=== PATIENT | female | born 1950 | race Asian ===

== ENCOUNTER → 2018-03-23 | Outpatient (CLI) | payer BC ==
[~2018-03-23] MED LIST: AMLO-114 PO; B-COTAB25 PO; FEXO1TAB46 PO; LOSA50TA54 PO; METO50TA8 PO; SEVE800T7 PO; TACR1CAP PO; ZOLP5TAB PO
--- NOTE | 2018-03-23 11:23 | DIAGNOSTIC IMAGING REPORT ---
RENAL TRANSPLANT ULTRASOUND W/WO DUPLEX CLINICAL HISTORY: GROSS HEMATURIA, F/U [facility] RENAL TRANSPLANT COMPARISON STUDY: No previous studies for comparison. FINDINGS: There is a right iliac fossa transplant kidney. The kidney measures 11.1 cm in length. There are no perinephric fluid collections. There is minimal fullness of the renal pelvis but significant hydronephrosis is not felt to be present. The peak systolic velocity within the right iliac artery is 99 cm/s. The peak systolic velocity within the right renal transplant artery is 120 cm/s. Arterial waveforms unremarkable in appearance. The resistive index is 0.73. IMPRESSION: 1. Right iliac fossa transplant kidney. No masses identified. No evidence of significant hydronephrosis. No evidence of renal artery stenosis. Electronically signed by: Maco Hawkins M.D. 03/23/2018 11:22 AM Dictated Date/Time: 03/23/2018 11:19 AM
== END | disposition home or self-care (01) ==
LOC: C.ULTR 10:32
PROVIDERS: ATTEND Internal Medicine
DX: R31.0 Gross hematuria (principal); Z94.0 Kidney transplant status

== ENCOUNTER 2019-01-01 10:38 | Observation (INO) ==
[2019-01-01] MEDS ORDERED: ASPIRIN CHEW 324 MG PO STA (11:20)
[2019-01-01 11:28] LABS: Basophils # (auto) 0.01 K/uL (0-0.2); Basophils % (auto) 0.1 %; Eosinophils # (auto) 0.21 K/uL (0-0.5); Eosinophils % (auto) 2.4 %; Hemoglobin 12.9 g/dL (12.0-16.0); Immature Granulocytes # (auto) 0.02 K/uL (0.00-0.02); Immature Granulocytes % (auto) 0.2 %; Lymphocytes # (auto) 2.49 K/uL (1.2-3.4); Lymphocytes % (auto) 28.7 %; Mean Corpuscular Hgb Conc 33.1 g/dL (32-36); Mean Corpuscular Volume 97.5 fL (80-100); Mean Platelet Volume 11.6 fL (7.4-10.4); Monocytes % (auto) 8.1 %; Neutrophils # (auto) 5.24 K/uL (1.4-6.5); Neutrophils % (auto) 60.5 %; Platelet Count 256 K/uL (130-400); RDW Coefficient of Variation 14.1 % (11.5-14.5); RDW Standard Deviation 50.5 fL (36.4-46.3); White Blood Count 8.67 K/uL (4.8-10.8)
[2019-01-01 11:36] LABS: BUN Creatinine Ratio 9.9 (10-20); Calcium 8.3 mg/dl (8.5-10.1); Creatinine Clr Calc Pharmacy 58.9 ml/min; Est GFR (African American) 92.1; Est GFR (Non-African American) 79.5; Potassium 3.7 mmol/L (3.5-5.1)
[2019-01-01 11:40] LABS: Troponin I 0.018 ng/ml (0-0.045)
--- NOTE | 2019-01-01 11:56 | XRay Report ---
XR chest 2V routine CLINICAL HISTORY: Atypical chest pain COMPARISON STUDY: 07/24/2013 FINDINGS: The heart is mildly enlarged. There is no failure. There is no focal pulmonary consolidatio n. There are no pleural effusions.[ IMPRESSION: No active disease in the chest. Electronically signed by: Maco Hawkins M.D. 01/01/2019 11:54 AM
--- NOTE | 2019-01-01 13:45 | History & Physical Report ---
Date of Service January 01, 2019 Assessment & Plan (1) Chest pain: Constant sharp chest pain x 2 days. Pain atypical for myocardial ischemia. Troponin in ED normal. No acute EKG changes. History of pericarditis. Check CRP and echo. Recent travel, but pain not pleuritic in nature. Low clinical suspicion for PE- oxygenating well, not tachycardic. Had some calf pain which has resolved. Check venous duplex lower extremities. Probably best not to pursue CTA due to renal transplant status and low clinical suspicion. (Wells' score 0 unless mild / resolved calf pain is included which would increase score to 3). Symptoms may be due to esophageal disease- GERD, alendronate-induced esophagitis , or infectious etiologies. Empiric pantoprazole. Consult Cardiology and GI. (2) Personal history of atrial fibrillation: Remote history of PAF. Currently in NSR. Continue metoprolol and aspirin. (3) Hypertension: Continue metoprolol. (4) Diabetes mellitus type 2, controlled: Apparently steroid-induced. Check Hgb A1C. Continue sitagliptin. Insulin coverage as needed. (5) Dyslipidemia: Check lipid profile. Continue atorvastatin. (6) Osteoporosis: Consider esophagitis secondary to alendronate. (7) Kidney transplanted: Creatinine stable at 0.76. Continue azothrioprine, tacrolimus, steroids. (8) Transplantation of liver: LFT's stable. Continue azothrioprine, tacrolimus, steroids. (9) DVT prophylaxis: Will not use anticoagulants until significant UGI pathology ruled out. SCD's. Ambulate. (10) Discharge planning issues: Anticipated discharge to home. Internal Medicine follow-up with Dr. Garner. History of Present Illness Chief Complaint: chest pain Primary Care Provider: Patricio Garner MD 68 YO female followed by Dr. Garner. 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 Developed chest pain 2 days prior to admission. Pain described as constant midsternal pain that does not radiate. Not associated SOB, nausea, vomiting, diaphoresis. Not associated with activity. Possibly aggravated by eating or drinking. Pain sharp in nature, but not pleuritic. Recently traveled by air from [place] about 3 weeks ago. Had some mild left calf pain which has resolved. Exposed to influenza while in [place] several weeks ago. Had a fever, cough, pharyngitis. Her symptoms have resolved. Takes alendronate for osteoporosis. Took dose yesterday and her symptoms worsened over the next 24 hours. Has chronic loose stools attributed to collagenous colitis. No melena or hematochezia. Allergies Allergy/AdvReac Type Severity Reaction Status Date / Time AMILCAR Inhibitors Allergy Unknown Cough Verified 01/01/19 12:07 amiodarone Allergy Unknown Hives Verified 01/01/19 12:07 Home Medications Home Medications Medication Instructions Recorded Confirmed Type alendronate 70 mg PO WK 01/01/19 01/01/19 History aspirin 81 mg PO QAM 01/01/19 01/01/19 History atorvastatin 10 mg PO HS 01/01/19 01/01/19 History azathioprine 100 mg PO DAILY 01/01/19 01/01/19 History biotin 0 mg PO HS 01/01/19 01/01/19 History fexofenadine 180 mg PO HS 01/01/19 01/01/19 History metoprolol succinate 50 mg PO QAM 01/01/19 01/01/19 History omega 1-ges-dvu-fish oil [Fish Oil] 1 cap PO QAM 01/01/19 01/01/19 History prednisolone 5 mg PO QAM 01/01/19 01/01/19 History sitagliptin [Januvia] 50 mg PO QAM 01/01/19 01/01/19 History tacrolimus 0.5 mg PO HS 01/01/19 01/01/19 History tacrolimus 1 mg PO QAM 01/01/19 01/01/19 History Past Med/Surg History Medical History Kidney transplanted (Chronic) Hypertension (Chronic) Diabetes mellitus type 2, 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 Osteoporosis (Chronic) Dyslipidemia (Chronic) Personal history of atrial fibrillation (Chronic) Chronic kidney disease stage 5 (Resolved Unknown) s/p renal transplant 2012 End stage renal failure on dialysis (Resolved Unknown) status post renal transplant 2013 Hemodialysis (Resolved Unknown) Transplantation of liver (Chronic Unknown) Collagenous colitis (Chronic) Pericardial effusion (Resolved) Surgical History Status post cardiac catheterization (Chronic) Status post creation of pericardial window (Chronic) Status post hysterectomy (Chronic) Status post kidney transplant (Chronic) Status post liver transplant (Chronic) Family History Mother Cancer Father Hypertension Other Family history non-contributory Social History marital status: Current Living Situation: Spouse current occupational status: retired Other Information That Helps Us Care for You: No Feels Safe at Home: Yes Safety Concerns: Feels Safe At This Time Smoking Status: Never smoker Do You Dip or Chew Tobacco: No Second Hand Exposure: No Tobacco Cessation Education Requested by Patient: No Hx Alcohol Use: No Hx Substance Use: No Beliefs That Will Affect Care: None Preferred Language: Tunisian Communication Ability: Effective Claim Technician Required: No Review of Systems Constitutional: + fever (fever a few weeks ago, resolved); no weight loss Eyes: no diplopia and no worsening vision Ear, Nose, Mouth, Throat: + nasal congestion (a few weeks ago, resolved) and + sore throat (a few weeks ago, resolved) Respiratory: as per Subjective / HPI Cardiovascular: as per Subjective / HPI Gastrointestinal: as per Subjective / HPI Genitourinary (Female): + dysuria (a few weeks ago, resolved) and + hematuria ( a few weeks ago, resolved) Musculoskeletal: no joint pain and no myalgia Integumentary: no rash and no new lesions Neurologic: no headache(s) Endocrine: no polydipsia and no polyuria Hematologic / Lymphatic: no easy bleeding, no easy bruising and no lymphadenopathy Physical Exam 2 Vital Signs (Past 24 Hours): Last Vital Signs Temp 36.8 C 01/01/19 10:52 Pulse 61 01/01/19 13:00 Resp 14 01/01/19 13:00 BP 118/78 01/01/19 13:00 Pulse Ox 96 01/01/19 13:00 Constitutional: WD/WN, vitals as above no acute distress Eyes: PERRL, conjunctivae normal, anicteric sclerae ENMT: external ear and nose normal, oropharynx normal Neck: trachea midline, no thyromegaly Respiratory: normal respiratory effort, lungs clear to auscultation no respiratory distress Auscultation: lungs clear to auscultation bilaterally Cardiovascular: Rate/Rhythm: regular rate and regular rhythm Heart Sounds: + murmur (II/ sys murmur at base); no gallop and no cardiac rub Vessels: no JVD Extremities: normal capillary refill (toes); no calf tenderness and no edema Gastrointestinal (Abdomen): normal bowel sounds, soft, nontender, no hepatosplenomegaly Musculoskeletal: Head/Neck/Chest: neck supple Extremities: strength 5/5 throughout; no cyanosis and no clubbing Skin: no rashes, warm and dry Neurologic: PERRL, EOMI no facial palsy no dysarthria or aphasia patellar DTR's 2/2 bilat Psychiatric: Orientation: alert and oriented x 3 Affect: euthymic affect Lymphatic: no cervical lymphadenopathy Results & Data Laboratory Results Laboratory Results - last 24 hr 01/01/19 01/01/19 11:04 11:04 WBC 8.67 RBC 4.00 L Hgb 12.9 Hct 39.0 MCV 97.5 MCH 32.3 MCHC 33.1 RDW Std Deviation 50.5 H RDW Coeff of Kristin 14.1 Plt Count 256 MPV 11.6 H Immature Gran % (Auto) 0.2 Neut % (Auto) 60.5 Lymph % (Auto) 28.7 [place] % (Auto) 8.1 Eos % (Auto) 2.4 Baso % (Auto) 0.1 Immature Gran # (Auto) 0.02 Neut # (Auto) 5.24 Lymph # (Auto) 2.49 [place] # (Auto) 0.70 H Eos # (Auto) 0.21 Baso # (Auto) 0.01 Sodium 139 Potassium 3.7 Chloride 104 Carbon Dioxide 29 Anion Gap 6.0 BUN 8 Creatinine 0.76 Est Cr Clr Drug Dosing 58.9 Est GFR ( Amer) 92.1 Est GFR (Non-Af Amer) 79.5 BUN/Creatinine Ratio 9.9 L Glucose 149 H Calcium 8.3 L Troponin I 0.018 Diagnostic Findings CHEST X-RAY FINDINGS: The heart is mildly enlarged. There is no failure. There is no focal pulmonary consolidation. There are no pleural effusions.[ IMPRESSION: No active disease in the chest. Electronically signed by: Maco Hawkins M.D. 01/01/2019 11:54 AM ECG Additional Comments: EKG performed at 1058 reviewed and demonstrated NSR @ 60 / min, possible age- indeterminate septal infarct, [address] elevation V1, [address] elevation V2, inverted T-waves aVL. Compared to tracing performed in clinic on 01/18/18- no significant change. Code Status & VTE Plan Code Status Advanced directives and code status discussed with patient. She has a living will. She would want aggressive measures undertaken in the event of a cardiopulmonary arrest, including CPR and intubation, if there is a change of a meaningful recovery. However she does not want extraordinary measures undertaken or continued if prognosis is poor. VTE Prophylaxis Plan VTE Prophylaxis will be ordered: Yes _ (1) Chest pain Chest pain type: unspecified Ischemic chest pain type: Qualified Code(s): R07.9 - Chest pain, unspecified
[2019-01-01] MEDS ORDERED: ALUMINUM/MAGNESIUM SUSP 30 ML UDC PO PRN (14:38)
[2019-01-01] MEDS ORDERED: ONDANSETRON INJ 2 MG/ML 2 ML VIAL IV PRN (14:38)
[2019-01-01] MEDS ORDERED: ACETAMINOPHEN 325 MG TAB PO PRN (14:38)
[2019-01-01] MEDS ORDERED: GLUCOSE 10 TABS/TUBE PO PRN (14:47)
[2019-01-01] MEDS ORDERED: CARBOHYDRATES FOR HYPOGLYCEMIA PO PRN (14:47)
[2019-01-01] MEDS ORDERED: GLUCAGON FOR INJ 1 MG VIAL IM PRN (14:47)
[2019-01-01] MEDS ORDERED: GLUCOSE 40% GEL 15 GM TUBE PO PRN (14:47)
[2019-01-01] MEDS ORDERED: DEXTROSE 50% 50 ML SYRINGE IV PRN (14:47)
[2019-01-01] MEDS ORDERED: PANTOprazole 40 MG in SYRINGE 0 ML IV ONE (15:45)
[2019-01-01 16:19] LABS: Alanine Aminotransferase 23 U/L (12-78); Albumin Level 3.5 gm/dl (3.4-5.0); Alkaline Phosphatase 58 U/L (45-117); Aspartate Aminotransferase 23 U/L (15-37); Bilirubin Direct 0.2 mg/dl (0-0.2); Bilirubin,Total 0.8 mg/dl (0.2-1); C Reactive Protein < 0.29 mg/dl (0-0.29); Total Protein 7.1 gm/dl (6.4-8.2); Troponin I 0.017 ng/ml (0-0.045)
--- NOTE | 2019-01-01 17:19 | Cardiology Consultation ---
Date of Consultation January 01, 2019 Assessment & Plan (1) Chest pain: We will monitor her cardiac enzymes. A resting echocardiogram was requested by the admitting team, and I will review this. Further cardiac workup possibly to include exercise stress echocardiogram will be considered tomorrow based on how she progresses. Continue aspirin, atorvastatin, metoprolol succinate. 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 Ledezma for the evaluation of chest discomfort. The patient's primary shoe coverer is Dr. Gonzalez of our practice. She has a history of remote paroxysmal atrial fibrillation. She describes a past history of myocardial infarction in the setting of a profound anemia episode and had cardiac catheterization performed [place] [facility] that revealed mild luminal irregularities and mild pulmonary hypertension. Her most recent stress test is been several years ago prior to her kidney transplant. She states that 2 days ago she had a brief degree of chest discomfort that went away on its own. Yesterday she had chest discomfort in the morning, but also taking her Fosamax tablet. She rested well yesterday but this morning she woke up again with chest discomfort which waxed and waned over several hours prompting her to come to the emergency room. Initial EKG revealed sinus rhythm at 60 bpm with chronic age-indeterminate septal infarction pattern noted with Q waves in lead V2 unchanged compared to 2013. Initial troponin was negative x2 at 11:04 AM and 1520 2 AM. At present when I interviewed the patient in room 201 she was comfortable having just had her evening meal. She describes that she exercises routinely at the [facility], she notes shortness of breath with exertion when she climbs a hill, but typically she notes that her exercise routine is not limited. Allergies Allergy/AdvReac Type Severity Reaction Status Date / Time AMILCAR Inhibitors Allergy Unknown Cough Verified 01/01/19 12:07 amiodarone Allergy Unknown Hives Verified 01/01/19 12:07 Home Medications Home Medications Medication Instructions Recorded Confirmed Type alendronate 70 mg PO WK 01/01/19 01/01/19 History aspirin 81 mg PO QAM 01/01/19 01/01/19 History atorvastatin 10 mg PO HS 01/01/19 01/01/19 History azathioprine 100 mg PO DAILY 01/01/19 01/01/19 History biotin 0 mg PO HS 01/01/19 01/01/19 History fexofenadine 180 mg PO HS 01/01/19 01/01/19 History metoprolol succinate 50 mg PO QAM 01/01/19 01/01/19 History omega 7-enh-jrw-fish oil [Fish Oil] 1 cap PO QAM 01/01/19 01/01/19 History prednisolone 5 mg PO QAM 01/01/19 01/01/19 History sitagliptin [Januvia] 50 mg PO QAM 01/01/19 01/01/19 History tacrolimus 0.5 mg PO HS 01/01/19 01/01/19 History tacrolimus 1 mg PO QAM 01/01/19 01/01/19 History Patient History Medical History Kidney transplanted (Chronic) Hypertension (Chronic) Diabetes mellitus type 2, 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 Osteoporosis (Chronic) Dyslipidemia (Chronic) Personal history of atrial fibrillation (Chronic) Chronic kidney disease stage 5 (Resolved Unknown) s/p renal transplant 2012 End stage renal failure on dialysis (Resolved Unknown) status post renal transplant 2012 Hemodialysis (Resolved Unknown) Transplantation of liver (Chronic Unknown) Collagenous colitis (Chronic) Pericardial effusion (Resolved) Surgical History Status post cardiac catheterization (Chronic) Status post creation of pericardial window (Chronic) Status post hysterectomy (Chronic) Status post kidney transplant (Chronic) Status post liver transplant (Chronic) Family History Mother Cancer Father Hypertension Other Family history non-contributory Social History marital status: Current Living Situation: Spouse current occupational status: retired Other Information That Helps Us Care for You: No Feels Safe at Home: Yes Safety Concerns: Feels Safe At This Time Smoking Status: Never smoker Do You Dip or Chew Tobacco: No Second Hand Exposure: No Tobacco Cessation Education Requested by Patient: No Hx Alcohol Use: No Hx Substance Use: No Beliefs That Will Affect Care: None Preferred Language: Israeli Communication Ability: Effective Barbering Instructor Required: No Review of Systems 10 point review of systems is reviewed and is negative the exception of that above Physical Exam 2 Vital Signs (Past 24 Hours): Last Vital Signs Temp 37.1 C 01/01/19 16:23 Pulse 56 L 01/01/19 16:23 Resp 18 01/01/19 16:23 BP 115/69 01/01/19 16:23 Pulse Ox 97 01/01/19 16:23 Physical Exam: General: no acute distress and stated age Eyes: conjunctiva are pink and non-injected, sclera clear Neck: normal jugular venous pulse, no hepatojugular reflux Chest: normal shape and normal respiratory effort Lungs: clear to auscultation and percussion Cardiac Exam: - regular heart sounds, 1/6 systolic murmur heard best over the left sternal border Abdomen: abdomen soft, non-tender, no abnormal masses and no hepatosplenomegaly Extremities: no edema and no cyanosis Neuro:awake, coversant, follows commands, no focal motor deficits Psych: appropriate affect and insight. Results & Data Laboratory Results Cardiac Enzymes 01/01/19 01/01/19 Range/Units 11:04 15:22 AST 23 (15-37) U/L Troponin I 0.018 0.017 (0-0.045) ng/ml CBC 01/01/19 Range/Units 11:04 WBC 8.67 (4.8-10.8) K/uL RBC 4.00 L (4.2-5.4) M/uL Hgb 12.9 (12.0-16.0) g/dL Hct 39.0 (37-47) % Plt Count 256 (130-400) K/uL Neut # (Auto) 5.24 (1.4-6.5) K/uL Lymph # (Auto) 2.49 (1.2-3.4) K/uL [place] # (Auto) 0.70 H (0.11-0.59) K/uL Eos # (Auto) 0.21 (0-0.5) K/uL Baso # (Auto) 0.01 (0-0.2) K/uL Comprehensive Metabolic Panel 01/01/19 01/01/19 Range/Units 11:04 15:22 Sodium 139 (136-145) mmol/L Potassium 3.7 (3.5-5.1) mmol/L Chloride 104 (98-107) mmol/L Carbon Dioxide 29 (21-32) mmol/L BUN 8 (7-18) mg/dl Creatinine 0.76 (0.6-1.2) mg/dl Glucose 149 H (70-99) mg/dl Calcium 8.3 L (8.5-10.1) mg/dl Direct Bilirubin 0.2 (0-0.2) mg/dl AST 23 (15-37) U/L ALT 23 (12-78) U/L Alkaline Phosphatase 58 (45-117) U/L Total Protein 7.1 (6.4-8.2) gm/dl Albumin 3.5 (3.4-5.0) gm/dl Intake and Output 01/01/19 01/01/19 01/01/19 06:59 14:59 22:59 Other: Weight 63.8 kg Patient Weight 01/02/19 06:59 Weight 63.8 kg Medications Administered Current Inpatient Medications Acetaminophen (Tylenol) 650 mg PO Q4H PRN PRN Reason: Pain or Fever Stop: 01/31/19 14:37 Al Hydrox/Mg Hydrox/Simethicone (Maalox) 15 ml PO Q4H PRN PRN Reason: Dyspepsia Stop: 01/31/19 14:37 Aspirin (Ecotrin Ectab) 81 mg PO QAM RONA Stop: 02/01/19 08:59 Atorvastatin Calcium (Lipitor) 10 mg PO HS RONA Stop: 01/31/19 20:59 Azathioprine (Imuran) 100 mg PO DAILY RONA Stop: 02/01/19 08:59 Dextrose (Dextrose 50%) 25 - 50 ml IV UD PRN; Protocol PRN Reason: Hypoglycemia Protocol Stop: 01/31/19 14:46 Fexofenadine HCl (Claire) 180 mg PO HS RONA Stop: 01/31/19 20:59 Glucagon (Glucagen) 1 mg IM UD PRN; Protocol PRN Reason: Hypoglycemia Protocol Stop: 01/31/19 14:46 Glucose (Glucose 40%) 15 - 30 gm PO UD PRN; Protocol PRN Reason: Hypoglycemia Protocol Stop: 01/31/19 14:46 Glucose (Dex4 Glucose) 4 - 8 tabs PO UD PRN; Protocol PRN Reason: Hypoglycemia Protocol Stop: 01/31/19 14:46 Pantoprazole Sodium 40 mg/ (Syringe) 10 mls @ 5 mls/min IV BID RONA Stop: 01/31/19 20:59 Insulin Aspart (Novolog Flexpen) 0 units SC ACHS [facility] Stop: 01/31/19 16:29 Metoprolol Succinate (Toprol Xl) 50 mg PO QAM [facility] Stop: 02/01/19 08:59 Miscellaneous (Carbohydrates For Hypoglycemia) 15 - 30 gm PO UD PRN PRN Reason: Hypoglycemia Treatment Stop: 01/31/19 14:46 Ondansetron HCl (Zofran) 4 mg IV Q6H PRN PRN Reason: Nausea Stop: 01/31/19 14:37 Prednisolone Sodium Phosphate (Pediapred) [facility] [place]: 02/01/19 08:59 Sitagliptin Phosphate (Januvia) 50 [facility] [place]: 02/01/19 08:59 Tacrolimus (Prograf) 0.5 mg PO [facility] Stop: 01/31/19 20:59 Tacrolimus (Prograf) 1 [place] [facility] [place]: 02/01/19 08:59 _ (1) Chest pain Chest pain type: unspecified Ischemic chest pain type: Qualified Code(s): R07.9 - Chest pain, unspecified
[2019-01-01] MEDS: INSULIN ASPART 100 UNITS/ML 3 ML PEN SC SCH ×2 (17:33→21:56)
--- NOTE | 2019-01-01 18:54 | Emergency Department Note ---
Entered by Elma White acting as a scribe for Arsh Mcgill History of Present Illness General Chief complaint: Cardiac Assessment Stated complaint: CHEST PAIN SINCE TUESDAY - SEVERE TODAY Time Seen by Provider: 01/01/19 11:11 Source: patient History of Present Illness Onset (ago): day(s) 2 Location: chest Pain Consistency: + constant Maximum Pain Intensity: 5 Quality: + sharp and + other (spasms) Exacerbated By: + other (position changes) Associated symptoms: + denies other symptoms (legs swelling, diarrhea); no fever /chills (fever), no nausea/vomiting and no shortness of breath The patient is a 68 year old female who presents to the Emergency Room with complaints of constant chest pains starting 2 days ago. The patient states that she started having central chest pain that is slightly to the right of her sternum 2 days ago. She states that she ignored it until today, but this morning she started having sharp spasms. She reports that the pain is worse with her positon, such as when she leans back to drink. She states that it makes her pain move down her chest. The patient notes that she has a history of a kidney transplant and a liver transplant. She states that 2 weeks ago she came back from [facility]. She notes that while she was there 2 of her friends got very sick and were hospitalized. She notes that one went into cardiac arrest and . She states that while she was there she had a fever for a few days, but hasn�t since coming home. The patient denies leg swelling, shortness of breath, nausea, vomiting, diarrhea, and the use of blood thinners. She notes that she took an 81 mg Aspirin this morning. Home Medications Home Medications Medication Instructions Recorded Confirmed Type alendronate 70 mg PO WK 01/01/19 01/01/19 History aspirin 81 mg PO QAM 01/01/19 01/01/19 History atorvastatin 10 mg PO HS 01/01/19 01/01/19 History azathioprine 100 mg PO DAILY 01/01/19 01/01/19 History biotin 0 mg PO HS 01/01/19 01/01/19 History fexofenadine 180 mg PO HS 01/01/19 01/01/19 History metoprolol succinate 50 mg PO QAM 01/01/19 01/01/19 History omega 6-[id number]-fish oil [Fish Oil] 1 cap PO QAM 01/01/19 01/01/19 History prednisolone 5 mg PO QAM 01/01/19 01/01/19 History sitagliptin [Januvia] 50 mg PO QAM 01/01/19 01/01/19 History tacrolimus 0.5 mg PO HS 01/01/19 01/01/19 History tacrolimus 1 mg PO QAM 01/01/19 01/01/19 History Allergies Allergy/AdvReac Type Severity Reaction Status Date / Time AMILCAR Inhibitors Allergy Unknown Cough Verified 01/01/19 12:07 amiodarone Allergy Unknown Hives Verified 01/01/19 12:07 Past Med/Surg History Medical History Kidney transplanted (Chronic) Hypertension (Chronic) Diabetes mellitus type 2, 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 Osteoporosis (Chronic) Dyslipidemia (Chronic) Personal history of atrial fibrillation (Chronic) Chronic kidney disease stage 5 (Resolved Unknown) s/p renal transplant 2012 End stage renal failure on dialysis (Resolved Unknown) status post renal transplant 2012 Hemodialysis (Resolved Unknown) Transplantation of liver (Chronic Unknown) Collagenous colitis (Chronic) Pericardial effusion (Resolved) Surgical History Status post cardiac catheterization (Chronic) Status post creation of pericardial window (Chronic) Status post hysterectomy (Chronic) Status post kidney transplant (Chronic) Status post liver transplant (Chronic) Family History Mother Cancer Father Hypertension Other Family history non-contributory Social History marital status: Current Living Situation: Spouse current occupational status: retired Other Information That Helps Us Care for You: No Feels Safe at Home: Yes Safety Concerns: Feels Safe At This Time Smoking Status: Never smoker Do You Dip or Chew Tobacco: No Second Hand Exposure: No Tobacco Cessation Education Requested by Patient: No Hx Alcohol Use: No Hx Substance Use: No Beliefs That Will Affect Care: None Preferred Language: Yoruba Communication Ability: Effective Spot Sprayer Required: No Review of Systems See HPI for pertinent positives & negatives. and A total of 10 systems reviewed and were otherwise negative Physical Exam Vital Signs Vital Signs - 24 hr 01/01/19 10:52 01/01/19 11:29 01/01/19 12:03 Temperature 36.8 C Temperature Source Oral Sepsis Recent Fever Within 48 Hours No Sepsis Action Taken by Nursing No Action Required Pulse Rate 61 Pulse Rate [Apical] 59 L Pulse Rate [Finger] Pulse Rhythm [Apical] Respiratory Rate 16 16 Respiratory Effort / Characteristics Respiratory Depth Respiratory Pattern Blood Pressure 124/77 Blood Pressure [Right Arm] 111/73 Blood Pressure Mean 92 Blood Pressure Mean [Right Arm] 85 Blood Pressure Position Sitting Blood Pressure Position [Right Arm] Pulse Oximetry 99 94 Oxygen Delivery Method Room Air Room Air Room Air 01/01/19 13:00 01/01/19 14:38 01/01/19 16:23 Temperature 36.9 C 37.1 C Temperature Source Oral Oral Sepsis Recent Fever Within 48 Hours Sepsis Action Taken by Nursing Pulse Rate Pulse Rate [Apical] 61 55 L Pulse Rate [Finger] 56 L Pulse Rhythm [Apical] Regular Respiratory Rate 14 16 18 Respiratory Effort / Characteristics Non-Labored Non-Labored Spontaneous Non-Labored Respiratory Depth Normal Normal Normal Respiratory Pattern Regular Blood Pressure Blood Pressure [Right Arm] 118/78 135/76 115/69 Blood Pressure Mean Blood Pressure Mean [Right Arm] 91 95 84 Blood Pressure Position Blood Pressure Position [Right Arm] Sitting Sitting Pulse Oximetry 96 96 97 Oxygen Delivery Method Room Air Room Air Room Air Physical Exam GENERAL: She is oriented to person, place, and time. She appears well- developed and well-nourished. She does not appear distressed. HENT: Exam performed. -Head: Normocephalic and atraumatic. -Right Ear: External ear normal. No mastoid tenderness. -Left Ear: External ear normal. No mastoid tenderness. -Mouth/Throat: The oropharynx is clear and moist. No trismus in the jaw. No dental abscesses or uvula swelling. No oropharyngeal exudate or tonsillar abscesses. EYES: Conjunctivae and EOM are normal. Pupils are equal, round, and reactive to light. Right eye exhibits no discharge. Left eye exhibits no discharge. No scleral icterus. NECK: Normal range of motion. Neck supple. No JVD present. No spinous process tenderness present. No carotid bruit present. No rigidity. No tracheal deviation and normal range of motion present. No Brudzinski's sign and no Kernig 's sign noted. CV: Normal rate, regular rhythm, normal heart sounds and intact distal pulses. There is no peripheral edema. Palpable radial pulses bue. PULM/CHEST: Effort normal and breath sounds normal. No respiratory distress. No stridor. She has no wheezes. She has no rales. -Chest Wall: She exhibits no tenderness. ABD: The abdomen is soft. Bowel sounds are normal. She has no distension. No mass is present. There is no tenderness. There is no rebound, no guarding, no Miller's sign and no tenderness at McBurney's point. Rovsig negative MUSC/SKEL: Normal range of motion. There is no peripheral edema, tenderness or deformity. LYMPH: No cervical adenopathy. NEURO: She is alert and oriented to person, place, and time. She has normal strength. No cranial nerve deficit or sensory deficit. Coordination and gait normal. GCS eye subscore is 4. GCS verbal subscore is 5. GCS motor subscore is 6. Cerebellar tests wnl. SKIN: Skin is warm and dry. She is not diaphoretic. PSYCH: She has a normal mood and affect. Behavior is normal. Judgment and thought content normal. Course 1115: Past medical records reviewed. The patient was evaluated in room B2, and a complete history and physical examination were performed. 1232: Vital signs stable. Labs and imaging within normal limits. Given her significant past medical history of liver transplant, kidney transplant, [place], A. fib, and her symptoms that she was reporting today she will be admitted to the hospital for rule out ACS. I reevaluated the patient and updated her on her test results at this time. I discussed the treatment plan with her. She verbally agrees and understands. I reviewed the patient's case with Dr. Kamran Farley. He will evaluate the patient for further management. Consultations Consultation #1: I reviewed the patient's case with Dr. Kamran Farley. He will evaluate the patient for further management. Time: 12:47 Administered Medications Insulin Aspart (Novolog Flexpen) 0 units SC ACHS RONA Stop: 01/31/19 16:29 Last Admin: 01/01/19 17:33 Dose: 2 units Discontinued Medications Aspirin (Aspirin) 324 mg PO NOW STA Stop: 01/01/19 11:21 Last Admin: 01/01/19 11:35 Dose: 324 mg Pantoprazole Sodium 40 mg/ (Syringe) 10 mls @ 5 mls/min IV NOW ONE Stop: 01/01/19 15:46 Last Admin: 01/01/19 16:29 Dose: 5 mls/min Medical Decision Making Medical Records Attestation: I reviewed the patient's medical records. Home Medications Current Medication List: was personally reviewed by me Laboratory Data Attestation: I reviewed the patient's lab results. Result diagrams: 01/01/19 11:04 01/01/19 11:04 Lab Results 01/01/19 01/01/19 01/01/19 Range/Units 11:04 11:04 15:22 WBC 8.67 (4.8-10.8) K/uL RBC 4.00 L (4.2-5.4) M/uL Hgb 12.9 (12.0-16.0) g/dL Hct 39.0 (37-47) % MCV 97.5 (80-100) fL MCH 32.3 (25-34) pg MCHC 33.1 (32-36) g/dL RDW Std Deviation 50.5 H (36.4-46.3) fL RDW Coeff of Kristin 14.1 (11.5-14.5) % Plt Count 256 (130-400) K/uL MPV 11.6 H (7.4-10.4) fL Immature Gran % (Auto) 0.2 % Neut % (Auto) 60.5 % Lymph % (Auto) 28.7 % [place] % (Auto) 8.1 % Eos % (Auto) 2.4 % Baso % (Auto) 0.1 % Immature Gran # (Auto) 0.02 (0.00-0.02) K/uL Neut # (Auto) 5.24 (1.4-6.5) K/uL Lymph # (Auto) 2.49 (1.2-3.4) K/uL [place] # (Auto) 0.70 H (0.11-0.59) K/uL Eos # (Auto) 0.21 (0-0.5) K/uL Baso # (Auto) 0.01 (0-0.2) K/uL Sodium 139 (136-145) mmol/L Potassium 3.7 (3.5-5.1) mmol/L Chloride 104 (98-107) mmol/L Carbon Dioxide 29 (21-32) mmol/L Anion Gap 6.0 (3-11) BUN 8 (7-18) mg/dl Creatinine 0.76 (0.6-1.2) mg/dl Est Cr Clr Drug Dosing 58.9 ml/min Est GFR ( Amer) 92.1 Est GFR (Non-Af Amer) 79.5 BUN/Creatinine Ratio 9.9 L (10-20) Glucose 149 H (70-99) mg/dl POC Glucose (70-99) Calcium 8.3 L (8.5-10.1) mg/dl Total Bilirubin 0.8 (0.2-1) mg/dl Direct Bilirubin 0.2 (0-0.2) mg/dl AST 23 (15-37) U/L ALT 23 (12-78) U/L Alkaline Phosphatase 58 (45-117) U/L Troponin I 0.018 0.017 (0-0.045) ng/ml C-Reactive Protein < 0.29 (0-0.29) mg/dl Total Protein 7.1 (6.4-8.2) gm/dl Albumin 3.5 (3.4-5.0) gm/dl 01/01/19 Range/Units 16:24 WBC (4.8-10.8) K/uL RBC (4.2-5.4) M/uL Hgb (12.0-16.0) g/dL Hct (37-47) % MCV (80-100) fL MCH (25-34) pg MCHC (32-36) g/dL RDW Std Deviation (36.4-46.3) fL RDW Coeff of Kristin (11.5-14.5) % Plt Count (130-400) K/uL MPV (7.4-10.4) fL Immature Gran % (Auto) % Neut % (Auto) % Lymph % (Auto) % [place] % (Auto) % Eos % (Auto) % Baso % (Auto) % Immature Gran # (Auto) (0.00-0.02) K/uL Neut # (Auto) (1.4-6.5) K/uL Lymph # (Auto) (1.2-3.4) K/uL [place] # (Auto) (0.11-0.59) K/uL Eos # (Auto) (0-0.5) K/uL Baso # (Auto) (0-0.2) K/uL Sodium (136-145) mmol/L Potassium (3.5-5.1) mmol/L Chloride (98-107) mmol/L Carbon Dioxide (21-32) mmol/L Anion Gap (3-11) BUN (7-18) mg/dl Creatinine (0.6-1.2) mg/dl Est Cr Clr Drug Dosing ml/min Est GFR ( Amer) Est GFR (Non-Af Amer) BUN/Creatinine Ratio (10-20) Glucose (70-99) mg/dl POC Glucose 190 H (70-99) Calcium (8.5-10.1) mg/dl Total Bilirubin (0.2-1) mg/dl Direct Bilirubin (0-0.2) mg/dl AST (15-37) U/L ALT (12-78) U/L Alkaline Phosphatase (45-117) U/L Troponin I (0-0.045) ng/ml C-Reactive Protein (0-0.29) mg/dl Total Protein (6.4-8.2) gm/dl Albumin (3.4-5.0) gm/dl Imaging Data Radiologist's Impression: Radiology results as stated below per my review and the radiologist's interpretation: XR chest 2V routine CLINICAL HISTORY: Atypical chest pain COMPARISON STUDY: 07/24/2013 FINDINGS: The heart is mildly enlarged. There is no failure. There is no focal pulmonary consolidation. There are no pleural effusions.[ IMPRESSION: No active disease in the chest. Electronically signed by: Maco Hawkins M.D. 01/01/2019 11:54 AM ECG Data Attestation: I personally reviewed and interpreted this ECG as follows: Indication: chest pain Rate (beats per minute): 60 Rhythm: sinus rhythm Findings: + other (WA, QRS, and QT-c intervals are within normal limits); no ST depression and no ST elevation Blood Pressure Blood Pressure Findings: Normal blood pressure Blood Pressure Disposition: did not require urgent referral MDM Narrative Vital signs stable. Labs and imaging within normal limits. Given her significant past medical history of liver transplant, kidney transplant, [place], A. fib, and her symptoms that she was reporting today she will be admitted to the hospital for rule out ACS. I reevaluated the patient and updated her on her test results at this time. I discussed the treatment plan with her. She verbally agrees and understands. I reviewed the patient's [facility] He will evaluate the patient for further management. Impression & Plan Chest pain Discharge Plan Visit Data *Final* Discharge Date/Time: 01/01/19 13:50 Chief Complaint: Cardiac Assessment Stated Complaint: CHEST PAIN SINCE TUESDAY - SEVERE TODAY Other Complaint: Chest Pain ED Provider: Arsh Mcgill Discharge Problem: Chest pain Patient Disposition: Admitted As Inpatient Discharge Instructions Interventions: ED Discharge Assessment Last Done: 01/01/19 13:50 The scribe's documentation has been prepared under my direction and personally reviewed by me in its entirety. I confirm that the note above accurately reflects all work, treatment, procedures, and medical decision making performed by me.
[2019-01-01] MEDS: PANTOprazole 40 MG in SYRINGE 0 ML IV SCH (20:52)
[2019-01-01] MEDS ORDERED: ATORVASTATIN 10 MG TAB PO SCH (21:00)
[2019-01-01] MEDS ORDERED: TACROLIMUS 0.5 MG CAP PO SCH (21:00)
[2019-01-01] MEDS ORDERED: FEXOFENADINE HCL 180 MG TAB PO SCH (21:00)
--- NOTE | 2019-01-01 21:26 | Ultrasound Report ---
ULTRASOUND BILATERAL LOWER EXTREMITY VENOUS CLINICAL HISTORY: Bilateral leg pain. COMPARISON STUDY: No priors. TECHNIQUE: Real-time, grayscale, and color Doppler sonography of the deep veins of the right and left lower extremity was performed from the inguinal crease to the calf. Compression and augmentation wer e utilized. FINDINGS: There is no sonographic evidence of deep venous thrombosis identified in the right or left lower extremity. The common femoral, superficial femoral, and popliteal veins are patent and normally compressible bilaterally. The greater saphenous vein and the profunda femoris vein at the junction w ith the common femoral vein are clear in both legs. The visualized calf veins are patent bilaterally. IMPRESSION: There is no sonographic evidence of deep venous thrombosis identified in the right or lef t lower extremity. Electronically signed by: Rosalio Woodruff M.D. 01/01/2019 9:24 PM
[2019-01-02 06:15] LABS: Estimated Average Glucose 177 mg/dl; Hemoglobin A1C 7.8 % (4.5-5.6)
[2019-01-02 06:41] LABS: Chol HDL Ratio 2; Cholesterol 134 mg/dl (0-200); HDL Cholesterol 64 mg/dl; LDL Cholesterol Calculated 56 mg/dl; Triglycerides 69 mg/dl (0-150); VLDL Cholesterol 14 mg/dl
[2019-01-02] MEDS: INSULIN ASPART 100 UNITS/ML 3 ML PEN SC SCH ×2 (08:00→12:51)
[2019-01-02] MEDS ORDERED: PREDNISOLONE SODIUM PHOSPHATE PO SCH ×3 (09:00)
[2019-01-02] MEDS ORDERED: TACROLIMUS 1 MG CAP PO SCH (09:00)
[2019-01-02] MEDS ORDERED: ASPIRIN 81 MG ECTAB PO SCH (09:00)
[2019-01-02] MEDS ORDERED: azaTHIOprine 50 MG TAB PO SCH (09:00)
[2019-01-02] MEDS ORDERED: SITAGLIPTIN PHOSPHATE 25 MG TAB PO SCH (09:00)
[2019-01-02] MEDS ORDERED: METOPROLOL SUCC 50MG EXT REL TAB PO SCH (09:00)
[2019-01-02] MEDS ORDERED: PERFLUTREN LIPID MICROSPHERE (DEFINITY) IV ONE (10:18)
[2019-01-02] MEDS: PANTOprazole 40 MG in SYRINGE 0 ML IV SCH (11:03)
--- NOTE | 2019-01-02 11:06 | Cardiology Progress Note ---
Date of Service January 02, 2019 Assessment & Plan (1) Chest pain: The patient presented with chest discomfort, somewhat atypical for angina, in the setting of significant underlying coronary heart risk factors including long -standing diabetes, end-stage renal disease requiring past renal transplant. She also has history of a liver transplant. Resting echocardiogram performed yesterday revealed severe concentric left ventricular hypertrophy with resultant small left ventricular cavity, and hyperdynamic LV function. I do not see a significant valvular cause of her murmur, and I would speculate that her murmur is actually due to dynamic intracavitary/LV outflow tract obstruction. On her contrast-enhanced images today performed at the time of the resting portion of the stress test, the septal wall could be seen making contact with a prominent papillary muscle during systole. She also has significant posterior mitral annular calcification. This is not unusual in a patient with a past long-standing history of renal disease. There is no significant mitral valve stenosis or mitral valve regurgitation. Her blood pressure has been well controlled with exception of one reading this morning. The patient underwent an exercise stress echocardiogram. A modified Roque protocol was performed, and she really surpassed my anticipated expectations with regards to her exercise capacity. She achieved a maximum heart rate equivalent to 77 percent of the age-predicted maximum. The heart rate response to exercise was appropriately attenuated due to her chronic beta-erik therapy. Her presenting symptoms of chest discomfort were not reproduced with exertion. EKG and echocardiographic response to exercise were negative for suggestion of ischemia. 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 She likely has small vessel disease, and she is certainly at risk for having angina, although her symptoms this presentation were with rest, and perhaps are consistent with an esophageal pathology such as esophageal infection related to her immunosuppression, or pill esophagitis. At this point, I would recommend ongoing conservative therapy. Would recommend against proceeding to cardiac catheterization unless it was felt that she had high risk features for coronary artery disease standpoint due to potential risk of nephrotoxicity in this kidney transplant patient. At this time, we will proceed with a trial of isosorbide mononitrate extended release. We will start 30 mg tablet, 1/2 tablet by mouth daily for the first week, and increase to 1 tablet daily as tolerated. Outpatient cardiology follow-up with Dr. Gonzalez or covering provider is recommended within 1-3 weeks. Differ GI work up to primary team. Perhaps outpatient EGD would be prudent. Subjective Chief Complaint : follow up chest pain Subjective: Pt seen prior to, during, and post exercise stress echocardiogram this morning. Telemetry overnight revealed sinus bradycardia in the mid 50 bpm range. She states that she rested well, she woke at 4:30 in the morning for a nursing task and noted vague chest discomfort. This had resolved by the time I had seen her, and EKG revealed no definite repolarization changes, however there was significant baseline artifact noted on the EKG performed this morning at 7: 34 AM. Physical Exam 2 Vital Signs (Past 24 Hours): Last Vital Signs Temp 36.7 C 01/02/19 08:56 Pulse 66 01/02/19 08:56 Resp 16 01/02/19 08:56 BP 168/93 H 01/02/19 08:56 Pulse Ox 98 01/02/19 08:56 Physical Exam: General: no acute distress and stated age Eyes: conjunctiva are pink and non-injected, sclera clear Neck: normal jugular venous pulse, no hepatojugular reflux Chest: normal shape and normal respiratory effort Lungs: clear to auscultation and percussion Cardiac Exam: - regular heart sounds, II/ systolic murmur heard best at the left sternal border Abdomen: abdomen soft, non-tender, no abnormal masses and no hepatosplenomegaly Musculoskeletal: no gait disturbance, no weakness Extremities: no edema and no cyanosis Neuro:awake, coversant, follows commands, no focal motor deficits Psych: appropriate affect and insight. Results & Data Laboratory Results Cardiac Enzymes 01/01/19 01/01/19 Range/Units 11:04 15:22 AST 23 (15-37) U/L Troponin I 0.018 0.017 (0-0.045) ng/ml Lipids 01/02/19 Range/Units 05:20 Triglycerides 69 (0-150) mg/dl Cholesterol 134 (0-200) mg/dl HDL Cholesterol 64 mg/dl Cholesterol/HDL Ratio 2 CBC 01/01/19 Range/Units 11:04 WBC 8.67 (4.8-10.8) K/uL RBC 4.00 L (4.2-5.4) M/uL Hgb 12.9 (12.0-16.0) g/dL Hct 39.0 (37-47) % Plt Count 256 (130-400) K/uL Neut # (Auto) 5.24 (1.4-6.5) K/uL Lymph # (Auto) 2.49 (1.2-3.4) K/uL [place] # (Auto) 0.70 H (0.11-0.59) K/uL Eos # (Auto) 0.21 (0-0.5) K/uL Baso # (Auto) 0.01 (0-0.2) K/uL Comprehensive Metabolic Panel 01/01/19 01/01/19 Range/Units 11:04 15:22 Sodium 139 (136-145) mmol/L Potassium 3.7 (3.5-5.1) mmol/L Chloride 104 (98-107) mmol/L Carbon Dioxide 29 (21-32) mmol/L BUN 8 (7-18) mg/dl Creatinine 0.76 (0.6-1.2) mg/dl Glucose 149 H (70-99) mg/dl Calcium 8.3 L (8.5-10.1) mg/dl Direct Bilirubin 0.2 (0-0.2) mg/dl AST 23 (15-37) U/L ALT 23 (12-78) U/L Alkaline Phosphatase 58 (45-117) U/L Total Protein 7.1 (6.4-8.2) gm/dl Albumin 3.5 (3.4-5.0) gm/dl Intake and Output 01/01/19 01/02/19 01/02/19 22:59 06:59 14:59 Intake Total 400 / 400 Balance 400 / 400 Intake: Oral 400 / 400 Other: Other Intake Source NPO # Unmeasured Voids 1 Weight 63 kg Medications Administered Current Inpatient Medications Acetaminophen (Tylenol) 650 mg PO Q4H PRN PRN Reason: Pain or Fever Stop: 01/31/19 14:37 Al Hydrox/Mg Hydrox/Simethicone (Maalox) 15 ml PO Q4H PRN PRN Reason: Dyspepsia Stop: 01/31/19 14:37 Aspirin (Ecotrin Ectab) 81 mg PO QAM [facility] Stop: 02/01/19 08:59 Last Admin: 01/02/19 11:00 Dose: 81 mg Atorvastatin Calcium (Lipitor) 10 mg PO HS [facility] Stop: 01/31/19 20:59 Last Admin: 01/01/19 20:33 Dose: 10 mg Azathioprine (Imuran) 100 mg PO DAILY [facility] Stop: 02/01/19 08:59 Last Admin: 01/02/19 11:01 Dose: 100 mg Dextrose (Dextrose 50%) 25 - 50 ml IV UD PRN; Protocol PRN Reason: Hypoglycemia Protocol Stop: 01/31/19 14:46 Fexofenadine HCl (Claire) 180 mg PO HS [facility] Stop: 01/31/19 20:59 Last Admin: 01/01/19 20:33 Dose: 180 mg Glucagon (Glucagen) 1 mg IM UD PRN; Protocol PRN Reason: Hypoglycemia Protocol Stop: 01/31/19 14:46 Glucose (Glucose 40%) 15 - 30 gm PO UD PRN; Protocol PRN Reason: Hypoglycemia Protocol Stop: 01/31/19 14:46 Glucose (Dex4 Glucose) 4 - 8 tabs PO UD PRN; Protocol PRN Reason: Hypoglycemia Protocol Stop: 01/31/19 14:46 Pantoprazole Sodium 40 mg/ (Syringe) 10 mls @ 5 mls/min IV BID [facility] Stop: 01/31/19 20:59 Last Admin: 01/02/19 11:03 Dose: 5 mls/min Insulin Aspart (Novolog Flexpen) 0 units SC ACHS [facility] Stop: 01/31/19 16:29 Last Admin: 01/02/19 08:00 Dose: Not Given Isosorbide Mononitrate (Imdur Extended Rel) 15 mg PO QAM [facility] Stop: 02/01/19 11:14 Metoprolol Succinate ([facility]rol Xl) [facility] [place] Stop: 02/01/19 08:59 Last Admin: 01/02/19 11:03 Dose: 50 mg Miscellaneous (Carbohydrates For Hypoglycemia) 15 - 30 gm PO UD PRN PRN Reason: Hypoglycemia Treatment Stop: 01/31/19 14:46 Ondansetron HCl (Zofran) 4 mg IV Q6H PRN PRN Reason: Nausea Stop: 01/31/19 14:37 Prednisolone Sodium Phosphate (Pediapred) 5 mg PO QAM [facility] Stop: 02/01/19 08:59 Last Admin: 01/02/19 11:02 Dose: 5 mg Sitagliptin Phosphate (Januvia) [facility] [place] Stop: 02/01/19 08:59 Last Admin: 01/02/19 11:02 Dose: 50 mg Tacrolimus (Prograf) 0.5 mg PO HS [facility] Stop: 01/31/19 20:59 Last Admin: 01/01/19 20:33 Dose: 0.5 mg Tacrolimus (Prograf) 1 mg PO QAM [facility] Stop: 02/01/19 08:59 Last Admin: 01/02/19 11:02 Dose: 1 mg _ (1) Chest pain Chest pain type: unspecified Ischemic chest pain type: Qualified Code(s): R07.9 - Chest pain, unspecified
[2019-01-02] MEDS ORDERED: ISOSORBIDE MONO EXTENDED REL 30 MG TABCR PO SCH (11:15)
--- NOTE | 2019-01-02 13:01 | Gastrointestinal Consultation ---
Date of Consultation January 02, 2019 Assessment & Plan (1) Chest pain: 1. We will await results of cardiac testing before considering any procedures. 2. In respect for patient's preference to avoid procedures if possible would recommend barium esophagram to be completed initially. If abnormalities on that x-ray, then we could speak with the patient about considering EGD. Supervising Physician Co-Signing Physician Notes I have seen and examined the patient. She does not want an endoscopy at this time or in the future. She is undergoing cardiac work-up. Agree with further plan of care as per Robin's note. Outpatient barium esophagram if she wants. Gi will sign off. History of Present Illness Reason for Consultation: chest pain Requesting Physician: Dr. Ledezma Attending Physician: Kortney Munoz MD History of Present Illness Ms. Chris Caceres is a 68-year-old female with a history of A. fib, hypertension, osteoporosis, DM 2, post distant liver and kidney transplant who presented [facility] yesterday for chest pain. The pain feels like a "spasm." She points to a very specific spot just to the right of her sternum when describing the pain the pain is worse when she turns or twists her torso. She first noticed this as a mild pain on Tuesday. On Tuesday she had severe pain in this area lasting for up to an hour eased off again this morning she had a small amount of pain. She denies any prior history of reflux disease, She happens to be on bisphosphonate which she had taken prior to the more severe pain on Tuesday. On arrival, chest x-ray was normal, venous Doppler ultrasound of the lower extremities was also normal, can panel CBC were normal with the exception of an elevated blood sugar and hemoglobin was 7.8. Patient is scheduled today for a cardiac stress test. She tells me that she prefers not to do additional testing if it can be avoided. She also does not feel that this is related to reflux. Allergies Allergy/AdvReac Type Severity Reaction Status Date / Time AMILCAR Inhibitors Allergy Unknown Cough Verified 01/01/19 12:07 amiodarone Allergy Unknown Hives Verified 01/01/19 12:07 Home Medications Home Medications Medication Instructions Recorded Confirmed Type alendronate 70 mg PO WK 01/01/19 01/01/19 History aspirin 81 mg PO QAM 01/01/19 01/01/19 History atorvastatin 10 mg PO HS 01/01/19 01/01/19 History azathioprine 100 mg PO DAILY 01/01/19 01/01/19 History biotin 0 mg PO HS 01/01/19 01/01/19 History fexofenadine 180 mg PO HS 01/01/19 01/01/19 History metoprolol succinate 50 mg PO QAM 01/01/19 01/01/19 History omega 6-rvt-[id number]-fish oil [Fish Oil] 1 cap PO QAM 01/01/19 01/01/19 History prednisolone 5 mg PO QAM 01/01/19 01/01/19 History sitagliptin 50 mg PO QAM 01/01/19 01/01/19 History tacrolimus 0.5 mg PO HS 01/01/19 01/01/19 History tacrolimus 1 mg PO QAM 01/01/19 01/01/19 History isosorbide mononitrate 30 mg PO QAM 30 Days #30 tab 01/02/19 Rx Patient History Medical History Kidney transplanted (Chronic) Hypertension (Chronic) Diabetes mellitus type 2, 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 Osteoporosis (Chronic) Dyslipidemia (Chronic) Personal history of atrial fibrillation (Chronic) Chronic kidney disease stage 5 (Resolved Unknown) s/p renal transplant 2012 End stage renal failure on dialysis (Resolved Unknown) status post renal transplant 2012 Hemodialysis (Resolved Unknown) Transplantation of liver (Chronic Unknown) Collagenous colitis (Chronic) Pericardial effusion (Resolved) Surgical History Status post cardiac catheterization (Chronic) Status post creation of pericardial window (Chronic) Status post hysterectomy (Chronic) Status post kidney transplant (Chronic) Status post liver transplant (Chronic) Family History Mother Cancer Father Hypertension Other Family history non-contributory Social History marital status: Current Living Situation: Spouse current occupational status: retired Other Information That Helps Us Care for You: No Feels Safe at Home: Yes Safety Concerns: Feels Safe At This Time Smoking Status: Never smoker Do You Dip or Chew Tobacco: No Second Hand Exposure: No Tobacco Cessation Education Requested by Patient: No Hx Alcohol Use: No Hx Substance Use: No Beliefs That Will Affect Care: None Preferred Language: French Review of Systems Constitutional: no fever, no chills, no sweats, no body aches, no fatigue, no weakness, no weight loss and no weight gain Respiratory: no cough, no chest congestion, no dyspnea on exertion and no wheezing Cardiovascular: + chest pain; no palpitations and no syncope Gastrointestinal: no abdominal pain, no belching, no bloating, no early satiety , no heartburn, no nausea and no vomiting Integumentary: no rash and no lesions Neurologic: no gait abnormality, no unsteadiness and no falls Psychiatric: no behavioral changes, no depression and no change in appetite Endocrine: no fatigue, no polydipsia, no polyphagia and no polyuria Hematologic / Lymphatic: no easy bleeding and no easy bruising Allergy / Immunological: no GI upset with certain foods Physical Exam 2 Vital Signs (Past 24 Hours): Last Vital Signs Temp 36.4 C L 01/02/19 11:00 Pulse 57 L 01/02/19 11:00 Resp 16 01/02/19 11:00 BP 137/73 01/02/19 11:00 Pulse Ox 96 01/02/19 11:00 Constitutional: WD/WN, vitals as above well nourished Eyes: PERRL, conjunctivae normal, anicteric sclerae ENMT: external ear and nose normal, oropharynx normal Neck: trachea midline, no thyromegaly Respiratory: normal respiratory effort, lungs clear to auscultation Cardiovascular: RRR, no murmur, no edema Gastrointestinal (Abdomen): normal bowel sounds, soft, nontender, no hepatosplenomegaly Skin: no rashes, warm and dry Neurologic: PERRL, EOMI, accommodation nl, no face palsy, no dysarthria Psychiatric: A+Ox3, euthymic affect Lymphatic: no cervical or axillary lymphadenopathy Results & Data Laboratory Results Labs reviewed see HPI. _ (1) Chest pain Chest pain type: unspecified Ischemic chest pain type: Qualified Code(s): R07.9 - Chest pain, unspecified
--- NOTE | 2019-01-02 14:45 | Discharge Summary ---
Date of Service January 02, 2019 Admission HPI Per Admitting Provider 68 YO female followed by Dr. Durham. 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 Developed chest pain 2 days prior to admission. Pain described as constant midsternal pain that does not radiate. Not associated SOB, nausea, vomiting, diaphoresis. Not associated with activity. Possibly aggravated by eating or drinking. Pain sharp in nature, but not pleuritic. Recently traveled by air from [facility] about 3 weeks ago. Had some mild left calf pain which has resolved. Exposed to influenza while in [place] several weeks ago. Had a fever, cough, pharyngitis. Her symptoms have resolved. Takes alendronate for osteoporosis. Took dose yesterday and her symptoms worsened over the next 24 hours. Has chronic loose stools attributed to collagenous colitis. No melena or hematochezia. Principal Diagnosis Chest pain/noncardiac/negative cardiac stress test/hypertension Discharge Exam Constitutional WD/WN, vitals as above well nourished; no acute distress Eyes PERRL, conjunctivae normal, anicteric sclerae ENMT external ear and nose normal, oropharynx normal Neck trachea midline, no thyromegaly Respiratory normal respiratory effort, lungs clear to auscultation no respiratory distress Auscultation: lungs clear to auscultation bilaterally Cardiovascular RRR, no murmur, no edema Rate/Rhythm: regular rate and regular rhythm Heart Sounds: + murmur (II/ sys murmur at base); no gallop and no cardiac rub Vessels: no JVD Extremities: normal capillary refill (toes); no calf tenderness and no edema Gastrointestinal (Abdomen) normal bowel sounds, soft, nontender, no hepatosplenomegaly Musculoskeletal Head/Neck/Chest: neck supple Extremities: strength 5/5 throughout; no cyanosis and no clubbing Skin no rashes, warm and dry Neurologic PERRL, EOMI, accommodation nl, no face palsy, no dysarthria Psychiatric A+Ox3, euthymic affect Orientation: alert and oriented x 3 Affect: euthymic affect Lymphatic no cervical or axillary lymphadenopathy no cervical lymphadenopathy Discharge Data Allergies Allergy/AdvReac Type Severity Reaction Status Date / Time AMILCAR Inhibitors Allergy Unknown Cough Verified 01/01/19 12:07 amiodarone Allergy Unknown Hives Verified 01/01/19 12:07 Consultations 01/01/19 12:06 ED Decision to Admit Stat 01/01/19 17:25 Consult Cardiology Routine Consult Gastroenterology Routine Ordered Studies 01/01/19 14:38 US venous doppler [facility] Urgent Hospital Course (1) Chest pain: Presented with chest pain for 2 days, atypical for angina Troponin negative No acute EKG changes. History of pericarditis. Lower extremity Doppler negative for DVT Appreciate input from cardiology, exercise stress test showed negative for stress-induced ischemia Added Imdur low-dose by cardiology Patient symptoms possibly secondary to acid reflux/GERD Ordered PPI, GI consult appreciated, outpatient follow-up (2) Personal history of atrial fibrillation: Remote history of PAF. Currently in NSR. Continue metoprolol and aspirin. (3) Hypertension: Continue metoprolol. Added Imdur by cardiology (4) Diabetes mellitus type 2, controlled: Apparently steroid-induced. Continue sitagliptin. Insulin coverage as needed. (5) Dyslipidemia: Check lipid profile. Continue atorvastatin. (6) Osteoporosis: Consider esophagitis secondary to alendronate. Added PPI, outpatient follow-up with GI (7) Kidney transplanted: Creatinine stable at 0.76. Continue azothrioprine, tacrolimus, steroids. (8) Transplantation of liver: LFT's stable. Continue azothrioprine, tacrolimus, steroids. (9) DVT prophylaxis: Patient is very active, ambulating in the hallway, low risks, SCD and teds SCD's. Ambulate. (10) Discharge planning issues: Stable to be discharged home today Internal Medicine follow-up with Dr. Durham. Total Time Total Time Spent Total Time Spent (In Minutes): Approximate 35 minutes Discharge Plan Discharge Items Patient Disposition: Home - Self-Care Reason For Visit: CHEST PAIN Discharge Diagnosis: CHEST PAIN /NEGATIVE CARDIAC STRESS TEST /HYPERTENSION Discharge Goals: Decrease discomfort Activity: Resume your previous activity Non-emergency contact: Primary Care Provider Call non-emergency contact if: you have any medication questions Follow-up/Referrals: Patricio Durham MD [Primary Care Provider] - 01/09/19 10:45 am Bunny Gonzalez DO [Family Provider] - 02/03/19 2:30 pm Diet: Regular Addtl Provider Instructions: HOSPITAL FOLLOW UP WITH FAMILY PHYSICIAN DR DURHAM ON 01/09/2019 @ 10: 45 AM YOU ARE STARTED A NEW MEDICATION IMDUR ( ISOSORBIDE MONONITRATE ) 30 MG DAILY TAKE 1/2 TABLET ( 15 MG ) FOR 1 WEEK THEN INCREASE DOSE TO 1 TABLET A DAY PLEASE CALL DR DURHAMS OFFICE WITH ANY COMPLAIN OF DIZZY SPELL /LIG HTHEADEDNES OR RECURRENCE OF SYMPTOM -CHEST PAIN /CHEST HEAVINESS Prescriptions: New isosorbide mononitrate 30 mg Tablet Extended Release 24 Hr 30 mg PO QAM 30 Days Qty: 30 RF: 3 Continued atorvastatin 10 mg tablet 10 mg PO HS RF: 0 metoprolol succinate 50 mg tablet extended release 24 hr 50 mg PO QAM RF: 0 alendronate 70 mg tablet 70 mg PO WK RF: 0 fexofenadine 180 mg Tablet 180 mg PO HS RF: 0 aspirin 81 mg Tablet,Delayed Release (Dr/Ec) 81 mg PO QAM RF: 0 prednisolone 5 mg Tablet 5 mg PO QAM RF: 0 biotin 1 mg Tablet PO HS RF: 0 sitagliptin 50 mg tablet 50 mg PO QAM RF: 0 omega 7-lpu-[id number]-fish oil [Fish Oil] 1,000 mg (120 mg-180 mg) Capsule 1 cap PO QAM RF: 0 tacrolimus 1 mg Tablet Extended Release 24 Hr 1 mg PO QAM RF: 0 tacrolimus 1 mg Tablet Extended Release 24 Hr 0.5 mg PO HS RF: 0 azathioprine 50 mg Tablet 100 mg PO DAILY RF: 0 Stand-Alone Forms: [facility] Discharge Orders: Discharge Order (Routine); Ordered 01/02/19 Ordered By: Kortney Munoz Admission Data Admit Date/Time: 01/01/19 12:42 Attending Provider: Kortney Munoz Admit Provider: Ryan Ledezma Primary Care Provider: Patricio Durham Other Providers: Ryan Ledezma ; Baldomero Sanz ; Beverley Gracia Service: Telemetry Medical Other Interventions: Discharge Summary Assessment (RN) Last Done: 01/02/19 13:39 DC Date/Time DO NOT enter until pt leaves facility: 01/02/19 14:11
== END 2019-01-02 14:11 | disposition home or self-care (01) ==
LOC: 2E 10:38 → ED 10:38 → 2E 13:50